=== PATIENT | female | born 1980 | race Caucasian/White ===

== ENCOUNTER 2016-12-04 11:21 | Inpatient (IN) | payer BC ==
[2016-12-04] MEDS ORDERED: OXYTOCIN 20 UNITS in RINGER'S SOLUTION,LACTATED 1,000 ML IV ONE (11:27)
[2016-12-04] MEDS ORDERED: RINGER'S SOLUTION,LACTATED 1,000 ML IV PRN ×2 (11:27)
[2016-12-04] MEDS ORDERED: ceFAZolin SODIUM/DEXTROSE,ISO 2 GM/50 ML BAG IV ONE (11:27)
[2016-12-04 11:52] LABS: Hematocrit 33.6 % (37.0-47.0); Hemoglobin 11.4 gm/dL (12.5-16.0); Mean Cell Volume 94.1 fl (78-100); Mean Corpuscular Hemoglobin 31.9 pg (27-31); Mean Corpuscular Hgb Conc 33.9 g/dl (32-36); Mean Platelet Volume 10.6 fl (6.0-9.5); Neutrophil # 8.1 K/mm3 (1.3-6.0); Neutrophil % 77.4 % (42-75.0); Platelet Count 215 K/mm3 (150-450); Red Blood Count 3.57 M/mm3 (4.2-5.4); Red Cell Distribution Width 13.1 % (11.5-14.0); White Blood Count 10.4 K/mm3 (4.0-10.5)
[2016-12-04] MEDS ORDERED: CITRIC ACID/SODIUM CITRATE 60 ML BTL PO STA (13:02)
[2016-12-04] MEDS ORDERED: RINGER'S SOLUTION,LACTATED 1,000 ML IV ONE ×2 (14:10→16:15)
[2016-12-04] MEDS ORDERED: HYDROcodone/ACETAMINOPHEN 1 EACH TABLET PO PRN (15:49)
[2016-12-04] MEDS ORDERED: diphenhydrAMINE HCL 25 MG CAPSULE PO PRN (15:49)
[2016-12-04] MEDS ORDERED: SIMETHICONE 80 MG TAB.CHEW PO PRN (15:49)
[2016-12-04] MEDS ORDERED: KETOROLAC TROMETHAMINE 30 MG/ML VIAL IV PRN (15:49)
[2016-12-04] MEDS ORDERED: SENNOSIDES 8.6 MG TABLET PO PRN (15:49)
[2016-12-04] MEDS ORDERED: ONDANSETRON HCL/PF 2 MG/ML VIAL IV PRN (15:49)
[2016-12-04] MEDS ORDERED: BISACODYL 10 MG SUPP.RECT RC PRN (15:49)
[2016-12-04] MEDS: HYDROcodone/ACETAMINOPHEN 1 EACH TABLET PO PRN ×3 (16:32→22:48)
[2016-12-04] MEDS: IBUPROFEN 800 MG TABLET PO PRN ×2 (16:32→22:48)
--- NOTE | 2016-12-04 16:47 | OR ---
Operative Report - Dictated Report Narrative: DATE OF PROCEDURE: 12/04/2016 PROCEDURE: 1. Primary low transverse section ANESTHESIA: Spinal. PREOPERATIVE DIAGNOSES: 1. Intrauterine at 38 4/7 weeks 2. Spontaneous rupture of membrane in labor 3. Breech presentation POSTOPERATIVE DIAGNOSES: 1. Intrauterine at 38 4/7 weeks 2. Spontaneous rupture of membrane in labor 3. Carlo Breech presentation SURGEON: Mary Paige M.D. CELLULAR EQUIPMENT INSTALLER: Meenu Esqueda Jeana FINDINGS: 1. Female in carlo breech presentation. Light meconium fluid. Weight 3639 g, 8/9, Time of delivery: 14;40 2. Normal uterus, and normal bilateral ovaries and tubes SPECIMENS: none DRAIN: James to gravity. URINE OUTPUT: 125 ml. BLOOD LOSS: 300 ml. IV FLUIDS: 1500 ml COMPLICATIONS: None. Description of Operative Procedure: The patient consented prior to the operation and was taken to the operating room. Spinal anesthesia was performed without complications. The patient was then placed in the dorsal supine position with leftward tilt. Sequential compression device was placed on the lower extremities and a James catheter was inserted into the bladder. Two grams of Ancef was given at time of the start of the spinal anesthesia. The abdomen was prepped with Chloraprep and draped in the usual sterile fashion. A time-out procedure was conducted to confirm the correct patient for the correct procedure. Anesthesia was tested and was adequate. A Pfannenstiel incision was marked and then made with a scalpel. The incision was carried through the subcutaneous layer to the fascia. The fascia was nicked at the midline and extended bilaterally with Rider scissors. The upper edge of the fascia incision was grasped with two Kia clamps, elevated and dissected off from the rectus muscles. The Kia clamps were repositioned to the lower edge of the fascia incision, which was tented up and dissected off from the rectus muscles. The rectus muscles were in the midline. The peritoneum was entered bluntly with a finger. The peritoneal incision was extended superiorly and inferiorly with good visualization of the bladder. A bladder blade was inserted. The vesicouterine peritoneum was identified, grasped with a smooth pick-ups, and entered sharply with Matzenbaum scissors. The incision was extended laterally, and a bladder flap was created. The bladder blade was repositioned. The lower uterine segment was incised in a transverse fashion with the scalpel, and the incision was extended laterally by stretching. The amniotic sac was ruptured with yellow green fluid, The bladder blade was removed. The baby was in breech presentation. Fundal pressure was applied while the buttock was elevated through the incision. The buttock was delivered with the downward pull of the buttock through my index fingers hooked around the inguinal area and fundal pressure. Baby was turned sacral anterior. Legs were delivered and the arms swiped across the chest and delivered. Head delivered without difficulty. There was meconium. The cord was clamped and cut. The infant was handed off to the nurse/ped in attendance. Cord blood was obtained. The placenta was removed manually. The uterus was exteriorized, and cleared off clots and membrane. The uterine incision was closed with 0 vicryl in a running lock fashion. A second imbricating layer was placed with 2-0 Vicryl. Good hemostasis was obtained. The posterior cul-de-sac was cleared off clots and fluid. The uterus was returned to the abdomen. The gutters were cleared off blood clots and fluid. The peritoneum was closed with 2-0 Vicryl. The lower portion of the rectus muscle was brought together with two figure of eight to cover the bladder. The fascia was reapproximated with #0 Vicryl in running fashion. The subcutaneous layer was irrigated with saline. The subcutaneous adipose layer was closed with 2-0 vicryl interruptedly. The skin was closed with 3-0 Monocryl suture in a subcuticular fashion. Benzoin was applied to incision edge. The incision was covered with Steri strips, then with Telfa, ABD and pressure dressing tape. The patient tolerated the procedure well. Sponge, lap, needle and instrument counts were correct. The patient was taken to the recovery room in stable condition. Mary Paige MD History for MU Definition: * The number of deliveries resulting in a live the patient experienced prior to current hospitalization * The previous delivery of live twins or any live multiple gestation is considered one live event. *If primagravida or nulliparous is documented select zero for the number of previous live births. Live Events: 0 History for MU Definition: * The number of deliveries resulting in a live the patient experienced prior to current hospitalization * The previous delivery of live twins or any live multiple gestation is considered one live event. *If primagravida or nulliparous is documented select zero for the number of previous live births. Live Events: 0
--- NOTE | 2016-12-04 17:18 | OR ---
Anesthesia Procedure Note - Anesthesia Procedure Note Narrative: Vital Signs - Last Taken Temp 36.5 C 12/04/16 17:12 Pulse 101 H 12/04/16 17:12 Resp 18 12/04/16 17:12 BP 125/71 12/04/16 17:12 Pulse Ox 98 12/04/16 17:12 O2 Oxygen Delivery Method Room Air 12/04/16 17:14 ANESTHESIA PROCEDURE NOTE Date of procedure: 12/04/2016. Time of procedure: 1550. Performed by: Earl Izaguirre CRNA Web Services Developer: Vy Paez RN . Preprocedure diagnosis: Postoperative analgesia for patient undergoing C- section for breech presentation.. Post procedure diagnosis: Same. Procedure: Bilateral TAP Block Indications: . Postoperative analgesia. Findings: Patient placed in the supine position recovery room. Ultrasound used to identify fascial layer between the internal oblique and trans-abdominis muscles. On the patient's right side. ChloraPrep was used to sterilize the skin. A 22-gauge 2 inch Stimuplex regional block needle was used under ultrasound guidance to inject a total of 20 mL of 2.5% Marcaine with epinephrine 1 200,000. Procedure was repeated on the patient's left side. EBL: Minimal. Fluids: N/A. Specimen: N/A. Post procedure condition: The patient tolerated the procedure well. No complications were noted. Thank you for this consultation Earl Izaguirre CRNA
[2016-12-04] MEDS: DOCUSATE SODIUM 100 MG CAPSULE PO SCH (20:48)
[2016-12-05] MEDS: HYDROcodone/ACETAMINOPHEN 1 EACH TABLET PO PRN ×3 (03:24→11:17)
[2016-12-05] MEDS: IBUPROFEN 800 MG TABLET PO PRN ×3 (05:06→19:13)
[2016-12-05 07:58] LABS: Hematocrit 31.1 % (37.0-47.0); Hemoglobin 10.6 gm/dL (12.5-16.0); Mean Cell Volume 94.5 fl (78-100); Mean Corpuscular Hemoglobin 32.2 pg (27-31); Mean Corpuscular Hgb Conc 34.1 g/dl (32-36); Mean Platelet Volume 10.3 fl (6.0-9.5); Neutrophil % 85.7 % (42-75.0); Platelet Count 181 K/mm3 (150-450); Red Blood Count 3.29 M/mm3 (4.2-5.4); White Blood Count 13.9 K/mm3 (4.0-10.5)
[2016-12-05] MEDS: DOCUSATE SODIUM 100 MG CAPSULE PO SCH ×2 (08:08→21:55)
--- NOTE | 2016-12-05 15:13 | PN ---
Subjective - Date and Time Seen Date: 12/05/16 Subjective Narrative: Post op day 1, s/p primary c/s for breech, SROM in labor. doing well. James out and voided. Ambulating and tolerating diet well. did not like Mascot as it made her agitative/irritative. pain overall controlled. . normal lochia. Objective - Vitals Vitals: Last Vital Signs Temp 36.7 C 12/05/16 13:50 Pulse 77 12/05/16 13:50 Resp 20 12/05/16 13:50 BP 107/60 12/05/16 13:50 Pulse Ox 99 12/05/16 13:50 - Abnormal Lab Findings Abnormal Lab Findings: Abnormal Lab Results 12/05/16 Range/Units 07:54 WBC 13.9 H D (4.0-10.5) K/mm3 RBC 3.29 L (4.2-5.4) M/mm3 Hgb 10.6 L (12.5-16.0) gm/dL Hct 31.1 L (37.0-47.0) % MCH 32.2 H (27-31) pg MPV 10.3 H (6.0-9.5) fl Immature Gran % (Auto) 0.80 H (0.001-0.429) % Immature Gran # (Auto) 0.11 H (0.000-0.0310) K/mm3 Neutrophils % 85.7 H (42-75.0) % Lymphocytes % 7.7 L (20-51) % Neutrophils # 12.0 H (1.3-6.0) K/mm3 Lymphocytes # 1.1 L (1.5-3.5) k/mm3 - Exam Constitutional: Present: Alert, Oriented x3, Cooperative Respiratory: Present: no respiratory distress Cardiovascular/Chest: Present: normal peripheral pulses Abdomen: Present: soft, nondistended, other - fundus firm. dressing dry and clean. Extremity: Present: normal range of motion, no pedal edema, no calf tenderness Skin Exam: Present: normal color, warm/dry, no cyanosis Eye contact: Present: cooperative, good eye contact, normal speech Cauti Physician Documentation - Urinary Catheter Management Urethral (James) Date of Insertion: 12/04/16 Time of Insertion: 14:25 Date of Removal: 12/05/16 Time of Removal: 03:00 Assessment/Plan Plan Narrative: A: POD#1, s/p primary c/s, stable and well. Plan: routine care. will switch norco to tylenol #3 as both norco and percocet made her agitative and could not fall asleep. ambulation encouraged. Mary Paige MD
[2016-12-05] MEDS: ACETAMINOPHEN WITH CODEINE 1 EACH TABLET PO PRN ×2 (19:16→23:44)
[2016-12-06] MEDS: IBUPROFEN 800 MG TABLET PO PRN ×4 (01:31→21:27)
[2016-12-06] MEDS: DOCUSATE SODIUM 100 MG CAPSULE PO SCH ×2 (08:51→21:23)
[2016-12-06] MEDS: HYDROcodone/ACETAMINOPHEN 1 EACH TABLET PO PRN (08:51)
--- NOTE | 2016-12-06 14:22 | PN ---
Subjective - Date and Time Seen Date: 12/06/16 Subjective Narrative: post op day 2, s/p primary c/s for breech, SROM in labor doing well. ambulating and tolerating regular diet. passed gas. pain controlled. . normal lochia. Objective - Vitals Vitals: Last Vital Signs Temp 36.6 C 12/06/16 13:33 Pulse 80 12/06/16 13:33 Resp 18 12/06/16 13:33 BP 105/57 12/06/16 13:33 Pulse Ox 98 12/06/16 13:33 - Exam Constitutional: Present: Alert, Oriented x3, Cooperative Respiratory: Present: no respiratory distress Cardiovascular/Chest: Present: normal peripheral pulses Abdomen: Present: soft, nontender, nondistended, other - fundus firm and below umbilicus. incision clean and dry with steri strips. Extremity: Present: normal range of motion, no pedal edema, no calf tenderness Skin Exam: Present: normal color, warm/dry, no cyanosis Appearance: Present: appropriate appearance Eye contact: Present: cooperative, good eye contact, normal speech Cauti Physician Documentation - Urinary Catheter Management Urethral (James) Date of Insertion: 12/04/16 Time of Insertion: 14:25 Date of Removal: 12/05/16 Time of Removal: 03:00 Assessment/Plan Plan Narrative: A: POD#2, s/p primary c/s, stable and well. Plan: routine post op care and care. Mary Paige MD
[2016-12-07] MEDS: ACETAMINOPHEN WITH CODEINE 1 EACH TABLET PO PRN (00:30)
[2016-12-07] MEDS: IBUPROFEN 800 MG TABLET PO PRN (06:09)
[2016-12-07] MEDS: DOCUSATE SODIUM 100 MG CAPSULE PO SCH (09:11)
--- NOTE | 2016-12-07 15:32 | PN ---
Subjective - Date and Time Seen Date: 12/07/16 Subjective Narrative: post op day 3, s/p prmary c/s for breech, srom in labor no complains. doing well. . normal lochia. Objective - Vitals Vitals: Last Vital Signs Temp 36.2 C L 12/07/16 06:45 Pulse 78 12/07/16 06:45 Resp 18 12/07/16 06:45 BP 120/83 12/07/16 06:45 Pulse Ox 97 12/07/16 06:45 - Exam Constitutional: Present: Alert, Oriented x3, Cooperative Respiratory: Present: no respiratory distress Abdomen: Present: soft, nontender, nondistended, other - fundus firm and non- tender. incision dry and clean with steri strips. Extremity: Present: normal range of motion, no pedal edema, no calf tenderness Skin Exam: Present: normal color, warm/dry, no cyanosis Eye contact: Present: cooperative, good eye contact, normal speech Cauti Physician Documentation - Urinary Catheter Management Urethral (Ajmes) Date of Insertion: 12/04/16 Time of Insertion: 14:25 Date of Removal: 12/05/16 Time of Removal: 03:00 Assessment/Plan Plan Narrative: A: POD#3, s/p primary c/s for breech, stable and well. Plan: will discharge home today. Mary Paige MD
[2016-12-07 16:11] VITALS: BP 123/80
== END 2016-12-07 14:30 | disposition home or self-care (01) | DRG 766 ==
LOC: OB 11:21
PROVIDERS: ADMIT Obstetrics & Gynecology; ATTEND Obstetrics & Gynecology
PROC: 6A550ZT Pheresis of Cord Blood Stem Cells, Single (ICD-10-PCS; 2016-12-04)
PROC: 4A1HXCZ Monitoring of Products of Conception, Cardiac Rate, External Approach (ICD-10-PCS; 2016-12-04)
PROC: 10D00Z1 Extraction of Products of Conception, Low, Open Approach (ICD-10-PCS; principal; 2016-12-04 11:45)
DX: O32.1XX0 Maternal care for breech presentation, not applicable or unspecified (principal); O77.0 Labor and delivery complicated by meconium in amniotic fluid; Z3A.39 39 weeks gestation of pregnancy; Z37.0 Single live birth